=== PATIENT | female | born 1950 | race Hispanic/Latino ===

== ENCOUNTER 2023-11-01 12:33 | Inpatient (IN) | payer OTHER ==
[2023-11-01] MEDS ORDERED: ONDANSETRON 4 MG/2 ML VIAL ONE (13:50)
[2023-11-01] MEDS ORDERED: MORPHINE 4 MG/ML SYR ONE (13:50)
[2023-11-01 14:35] LABS: Absolute Basophils 0.1 K/uL (0-0.5); Absolute Eosinophils 0.1 K/uL (0-0.5); Absolute Lymphocytes (CBC) 1.2 K/uL (0.7-4.9); Absolute Monocytes 0.8 K/uL (0.1-1.3); Absolute Neutrophil 7.1 K/uL (1.8-8.0); Basophils % 0.7 % (0-1.3); Eosinophils % 0.6 % (0-4.4); Hematocrit 29.2 % (36.0-45.0); Hemoglobin 9.7 g/dL (12.0-15.0); Lymphocytes % 13.3 % (15.3-44.8); MCH 29.9 pg (27.0-35.0); MCHC 33.2 g/dL (32.0-36.0); MPV 11.4 fL (7.6-11.3); Monocytes % 8.9 % (3.3-12.3); Neutrophils % 76.5 % (41.7-73.7); Platelets 190 thou/uL (152-406); RBC Red Blood Cell Count 3.25 M/uL (3.86-4.86); Red Cell Distribution Width 16.9 % (12.1-15.2)
[2023-11-01 14:55] LABS: Albumin 3.3 g/dL (3.4-5.0); Albumin/Globulin Ratio 0.8 (1.1-1.8); Anion Gap 11.8 mEq/L (5.0-15.0); Bilirubin Total 0.4 mg/dL (0.2-1.0); Globulin 3.9 g/dL (2.3-3.5); Potassium 3.8 mEq/L (3.5-5.1); Protein, Total 7.2 g/dL (6.4-8.2)
[2023-11-01] MEDS ORDERED: NA CHLORIDE 0.9% 500 ML ONE (15:45)
[2023-11-01] MEDS ORDERED: PROMETHAZINE INJ 25 MG/ML AMP ONE (15:45)
--- NOTE | 2023-11-01 16:05 | RAD REPORT ---
EXAM DESCRIPTION: CT - Abdomen Pelvis Wo Contrast - 11/01/2023 3:47 pm CLINICAL HISTORY: Abdominal pain. ABD PAIN COMPARISON: No comparisons TECHNIQUE: CT imaging of the abdomen and pelvis was performed without contrast. Solid organ, bowel a nd vascular assessment is limited due to lack of IV and oral contrast. All CT scans are performed using dose optimization technique as appropriate and may include automated exposure control or mA/KV adjustment according to patient size. FINDINGS: The lungs are emphysematous but clear.Small hiatal hernia. The liver, spleen, pancreas, adrenal glands and kidneys are within normal limits for a limited non-co ntrast examination.Probable cholelithiasis. No bowel obstruction, free air, free fluid or abscess. Sigmoid diverticulosis coli with mild wall thi ckening. The appendix is normal. The osseous structures are within normal limits.Mild anterolisthesis of L4 on 5. IMPRESSION: Sigmoid thickening is present with diverticula which could indicate mild diverticulitis. Suggest followup colonoscopy for further direct assessment. Suspected cholelithiasis. A limited non-contrast examination was performed as detailed.
--- NOTE | 2023-11-01 16:40 | ER ---
Nurse's Notes [facility] Name: Katja Benson Age: 72 yrs Sex: Female : 1950 Arrival Date: 11/01/2023 Time: 12:33 Bed 13 Private MD: Diagnosis: Diverticulitis of large intestine without perforation or abscess without bleeding;Other cholelithiasis without obstruction;Dehydration;Nausea with vomiting, unspecified;End stage renal disease Presentation: 10/31 13:02 Chief complaint: Patient states: having n/v x 1 month, been to 3 hospitals and cant ko1 find anything wrong. M-W-F dialysis, had to leave today before getting dialysis. Coronavirus screen: At this time, the client does not indicate any symptoms associated with coronavirus-19. Ebola Screen: No symptoms or risks identified at this time. 13:02 Method Of Arrival: Wheelchair ko1 13:04 Initial Sepsis Screen: Does the patient meet any 2 criteria? No. Patient's initial ko1 sepsis screen is negative. Does the patient have a suspected source of infection? No. Patient's initial sepsis screen is negative. Risk Assessment: Do you want to hurt yourself or someone else? Patient reports no desire to harm self or others. Onset of symptoms is unknown. 13:04 Acuity: JARROD 3 ko1 Triage Assessment: 13:05 General: Appears ill, Behavior is cooperative, appropriate for age, anxious. Pain: ko1 Complains of pain in abdomen. Historical: - Allergies: 13:05 Morphine; ko1 - PMHx: 13:05 Diabetes mellitus; Kidney disease; ko1 - Immunization history:: Adult Immunizations unknown. - Infectious Disease History:: Denies. - Social history:: Smoking status: Patient denies any tobacco usage or history of. Screenin:10 [facility] ED Fall Risk Assessment (Adult) History of falling in the last 3 months, rs5 including since admission No falls in past 3 months (0 pts) Confusion or Disorientation No (0 pts) Intoxicated or Sedated No (0 pts) Impaired Gait No (0 pts) Mobility Assist Device Used No (0 pt) Altered Elimination No (0 pt) Score/Fall Risk Level 0 - 2 = Low Risk Oriented to surroundings, Maintained a safe environment. Abuse screen: Denies threats or abuse. Nutritional screening: No deficits noted. Tuberculosis screening: No symptoms or risk factors identified. Assessment: 13:10 General: Appears in no apparent distress. uncomfortable, Behavior is calm, cooperative. rs5 Pain: Complains of pain in abdomen Pain currently is 7 out of 10 on a pain scale. Quality of pain is described as aching, Is continuous. Neuro: Level of Consciousness is awake, alert, obeys commands, Oriented to person, place, time, situation. Cardiovascular: Patient's skin is warm and dry. Rhythm is regular. Respiratory: Airway is patent Respiratory effort is even, unlabored, Respiratory pattern is regular, symmetrical. GI: Abdomen is round non-distended, Abd is soft and non tender X 4 quads. : No signs and/or symptoms were reported regarding the genitourinary system. EENT: No signs and/or symptoms were reported regarding the EENT system. Derm: Skin is intact, Skin is pink, warm \\T\\ dry. Musculoskeletal: Range of motion: intact in all extremities. 13:11 Reassessment: Pt states "I'm not really allergic to morphine but sometimes I just say rs5 that I am because it makes me feel a little funky but I'm not really allergic to it. I'm okay with taking it. "Provider notified. 14:20 Reassessment: Patient and/or family updated on plan of care and expected duration. Pain rs5 level reassessed. Patient is alert, oriented x 3, equal unlabored respirations, skin warm/dry/pink. 15:30 Reassessment: Patient and/or family updated on plan of care and expected duration. Pain rs5 level reassessed. Patient is alert, oriented x 3, equal unlabored respirations, skin warm/dry/pink. Patient states feeling better. Patient states symptoms have improved. 16:09 Reassessment: No changes from previously documented assessment. rs5 17:12 Reassessment: No changes from previously documented assessment. rs5 18:05 Reassessment: Patient and/or family updated on plan of care and expected duration. Pain rs5 level reassessed. Patient is alert, oriented x 3, equal unlabored respirations, skin warm/dry/pink. Vital Signs: 13:02 BP 98 / 54; Pulse 76; Resp 18; Temp 97; Pulse Ox 100% ; ko1 17:09 BP 144 / 73; Pulse 81; Resp 18; Pulse Ox 99% on R/A; rs5 18:01 BP 148 / 76; Pulse 81; Resp 18; Pulse Ox 99% on R/A; rs5 ED Course: 12:35 Patient arrived in ED. im 12:39 Ana Corcoran FNP [facility]. jh7 12:39 Farhan Narayanan MD is Attending Physician. jh7 13:05 Triage completed. ko1 13:05 Arm band placed on right wrist. Patient placed in waiting room, Patient notified of ko1 wait time. 13:10 Patient has correct armband on for positive identification. Placed in gown. Bed in low rs5 position. Call light in reach. Side rails up X2. 13:10 No provider procedures requiring assistance completed. rs5 13:44 Papa Hui, YULY is Primary Nurse. rs5 14:30 Initial lab(s) drawn, by ky, sent to lab. aa5 14:30 Missed attempt(s): 22 gauge in right forearm. Missed attempt(s): 22 gauge in right aa5 wrist. Bleeding controlled, band aid applied, catheter tip intact. 14:49 Missed attempt(s): 24 gauge in right forearm. rs5 14:56 Inserted saline lock: 24 gauge in right forearm, using aseptic technique. ph 15:49 CT Abd/Pelvis - Without Contrast In Process Unspecified. EDMS 16:38 Jp Busby MD is Hospitalizing Provider. jh7 18:01 Patient admitted, IV remains in place. rs5 Administered Medications: 14:30 Drug: Ondansetron IVP 4 mg IVP once; over 2 minutes Route: IVP; Site: left forearm; rs5 14:45 Follow up: Response: No adverse reaction rs5 14:30 Drug: morphine IVP or IV 4 mg IVP once over 4 mins Route: IVP; Infused Over: 4 mins; rs5 Site: left forearm; 14:45 Follow up: Response: No adverse reaction; Pain is decreased rs5 15:39 Drug: NS 0.9% IV 500 ml IV at bolus once Route: IV; Rate: bolus; Site: left antecubital;rs5 16:01 Follow up: Response: No adverse reaction rs5 15:39 Drug: Promethazine IVP 12.5 mg IVP once Route: IVP; Site: left antecubital; rs5 16:02 Follow up: Response: No adverse reaction rs5 17:00 Drug: Ciprofloxacin IVPB 400 mg 200 ml IVPB once over 60 mins Volume: 200 ml; Route: rs5 IVPB; Infused Over: 60 mins; Site: left antecubital; 17:20 Follow up: Response: No adverse reaction rs5 17:10 Drug: metroNIDAZOLE IVPB 500 mg 100 ml IVPB at 200 ml/hr once over 30 mins Volume: 100 rs5 ml; Route: IVPB; Rate: 200 ml/hr; Infused Over: 30 mins; Site: left antecubital; 17:30 Follow up: Response: No adverse reaction rs5 Medication: 15:36 VIS not applicable for this client. rs5 Outcome: 16:39 Decision to Hospitalize by Provider. 7 18:40 Admitted to Med/surg accompanied by tech, rs5 18:40 Condition: stable 18:40 Instructed on the need for admit, Demonstrated understanding of instructions, 18:43 Patient left the ED. jr12 Signatures: Dispatcher [employer] EDNH Carolina Reed, RN RN aa5 Kaila Juárez RN RN Ana Corcoran, INTERNET CONSULTANT INTERNET CONSULTANT 7 Desi Vaughn RN RN ko1 Papa Hui RN RN rs5 Liss Albright Jess jr12 Corrections: (The following items were deleted from the chart) 16:08 13:11 Reassessment: Pt states "I'm not really allergic to morphine but sometimes I just rs5 say that I am because it makes me feel a little funky but I'm not really allergic to it. I'm okay with taking it. ". rs5 18:50 17:09 BP 144 / 73; Pulse 18bpm; Resp 18bpm; Pulse Ox 99% RA; rs5 rs5
--- NOTE | 2023-11-01 16:40 | EDPHYS ---
Physician Documentation [facility] Name: Katja Benson Age: 72 yrs Sex: Female : 1950 Arrival Date: 11/01/2023 Time: 12:33 Bed 13 Private MD: ED Physician Farhan Narayanan HPI: 10/31 13:02 This 72 yrs old Female presents to ER via Wheelchair with complaints of jh7 Weakness, Nausea, Vomiting, Constipation, Urinary Retention. 13:02 72-year-old female presents to the ER for nausea and vomiting and abdominal pain for jh7 the past month, that worsened last week. She reports that she has been unable to keep anything down for the past week and has not had a bowel movement in almost a month. She reports generalized abdominal pain. She gets dialysis M/W/F and left dialysis after 2 hours due to vomiting. Other history includes hypertension, anemia, diabetes, and hypothyroidism.. Historical: - Allergies: 13:05 Morphine; ko1 - PMHx: 13:05 Diabetes mellitus; Kidney disease; ko1 - Immunization history:: Adult Immunizations unknown. - Infectious Disease History:: Denies. - Social history:: Smoking status: Patient denies any tobacco usage or history of. ROS: 13:02 Constitutional: Per HPI jh7 Exam: 13:02 Head/Face: Normocephalic, atraumatic. Eyes: Pupils equal round and reactive to light, jh7 extra-ocular motions intact. Lids and lashes normal. Conjunctiva and sclera are non-icteric and not injected. Cornea within normal limits. Periorbital areas with no swelling, redness, or edema. Neck: Trachea midline, no thyromegaly or masses palpated, and no cervical lymphadenopathy. Supple, full range of motion without nuchal rigidity, or vertebral point tenderness. No Meningismus. Cardiovascular: Regular rate and rhythm with a normal S1 and S2. No gallops, murmurs, or rubs. Normal PMI, no JVD. No pulse deficits. Respiratory: Lungs have equal breath sounds bilaterally, clear to auscultation and percussion. No rales, rhonchi or wheezes noted. No increased work of breathing, no retractions or nasal flaring. Back: No spinal tenderness. No costovertebral tenderness. Full range of motion. MS/ Extremity: Pulses equal, no cyanosis. Neurovascular intact. Full, normal range of motion. Neuro: Awake and alert, GCS 15, oriented to person, place, time, and situation. Motor strength 5/5 in all extremities. Sensory grossly intact. Normal gait. 13:02 Constitutional: The patient appears alert, awake, frail, 13:02 Abdomen/GI: Inspection: abdomen appears normal, Bowel sounds: normal, Palpation: soft, mild abdominal tenderness, in all quadrants, 13:02 Skin: Appearance: Color: pale, Vital Signs: 13:02 BP 98 / 54; Pulse 76; Resp 18; Temp 97; Pulse Ox 100% ; ko1 17:09 BP 144 / 73; Pulse 81; Resp 18; Pulse Ox 99% on R/A; rs5 18:01 BP 148 / 76; Pulse 81; Resp 18; Pulse Ox 99% on R/A; rs5 MDM: 12:39 Patient medically screened. [facility] 16:30 Data reviewed: vital signs, nurses notes, lab test result(s), radiologic studies, CT [facility] scan. Consideration of Admission/Observation Patient was admitted/placed on observation. Management of patient was discussed with the following: Hospitalist: Dr. Castro. I considered the following discharge prescriptions or medication management in the emergency department Medications were administered in the Emergency Department. See MAR. Care significantly affected by the following chronic conditions: Diabetes, Hypertension, Chronic Kidney Disease. Counseling: I had a detailed discussion with the patient and/or guardian regarding the historical points, exam findings, and any diagnostic results supporting the discharge/admit diagnosis, the need for further work-up and treatment in the hospital. Response to treatment: the patient's symptoms have mildly improved after treatment. 10/31 12:47 Order name: CBC with Diff; Complete Time: 15:29 [facility] 10/31 12:47 Order name: CMP; Complete Time: 15:29 [facility] 10/31 12:47 Order name: Lipase; Complete Time: 15:29 [facility] 10/31 12:47 Order name: Urinalysis w/ reflexes 7 10/31 16:57 Order name: Thyroid Stimulating Hormone EDMS 10/31 16:57 Order name: Urinalysis w/ reflexes EDMS 10/31 16:57 Order name: CBC with Automated Diff EDMS 10/31 16:57 Order name: CBC with Automated Diff EDMS 10/31 16:57 Order name: Comprehensive Metabolic Panel EDHI 10/31 16:57 Order name: Comprehensive Metabolic Panel EDHI 10/31 16:57 Order name: Lipid Profile EDMS 10/31 16:57 Order name: Lipid Profile EDHI 10/31 16:57 Order name: Magnesium EDHI 10/31 16:57 Order name: Magnesium EDMS 10/31 16:57 Order name: Phosphorus EDMS 10/31 16:57 Order name: Phosphorus EDMS 10/31 15:32 Order name: CT Abd/Pelvis - Without Contrast; Complete Time: 16:12 7 10/31 12:47 Order name: IV Saline Lock; Complete Time: 15:33 7 10/31 12:47 Order name: Labs collected and sent; Complete Time: 14:34 [facility] 10/31 16:44 Order name: EKG - Nurse/Tech; Complete Time: 18:24 jh7 EC:11 Rate is 68 beats/min. Rhythm is regular. QRS [place] is Normal. QRS interval is normal at 7 120 msec. QT interval is normal at 370 msec. No Q waves. T waves are Normal. ST Segment is depressed in leads II, III, V4, V5, V6. Administered Medications: 14:30 Drug: Ondansetron IVP 4 mg IVP once; over 2 minutes Route: IVP; Site: left forearm; rs5 14:45 Follow up: Response: No adverse reaction rs5 14:30 Drug: morphine IVP or IV 4 mg IVP once over 4 mins Route: IVP; Infused Over: 4 mins; rs5 Site: left forearm; 14:45 Follow up: Response: No adverse reaction; Pain is decreased rs5 15:39 Drug: NS 0.9% IV 500 ml IV at bolus once Route: IV; Rate: bolus; Site: left antecubital;rs5 16:01 Follow up: Response: No adverse reaction rs5 15:39 Drug: Promethazine IVP 12.5 mg IVP once Route: IVP; Site: left antecubital; rs5 16:02 Follow up: Response: No adverse reaction rs5 17:00 Drug: Ciprofloxacin IVPB 400 mg 200 ml IVPB once over 60 mins Volume: 200 ml; Route: rs5 IVPB; Infused Over: 60 mins; Site: left antecubital; 17:20 Follow up: Response: No adverse reaction rs5 17:10 Drug: metroNIDAZOLE IVPB 500 mg 100 ml IVPB at 200 ml/hr once over 30 mins Volume: 100 rs5 ml; Route: IVPB; Rate: 200 ml/hr; Infused Over: 30 mins; Site: left antecubital; 17:30 Follow up: Response: No adverse reaction rs5 Disposition: 19:57 Co-signature as Attending Physician, Farhan Narayanan MD I reviewed the patient's care rn provided by the Advanced Practice Provider and agree with the diagnosis and treatment plan. Disposition Summary: 11/01/23 16:39 Hospitalization Ordered Notes: Hospitalization Status: Inpatient Admission [facility] Provider: Jp Busby [facility] Condition: Stable [facility] Problem: an ongoing problem [facility] Symptoms: are unchanged [facility] Bed/Room Type: Standard [facility] Location: Telemetry/MedSurg (Inpatient)(11/01/23 17:37) bd Room Assignment: [facility](11/01/23 17:37) bd Diagnosis - Diverticulitis of large intestine without perforation or abscess without bleeding jh7 - Other cholelithiasis without obstruction 7 - Dehydration jh7 - Nausea with vomiting, unspecified [facility] - End stage renal disease [facility] Forms: - Medication Reconciliation Form [facility] - SBAR form [facility] - Leadership Thank You Letter [facility] Signatures: Dispatcher [employer] EDMS Lala Young Roman, MD MD rn Hadash, Jennifer, SHELLEY LOPEZP 7 Nadira Florence RN RN kb3 Desi Vaughn RN RN ko1 Papa Hui, RN RN rs5 Corrections: (The following items were deleted from the chart) 12:48 12:47 CBC+H.LAB.BRZ ordered. EDMS EDMS 12:48 12:47 COMPREHENSIVE METABOLIC PANEL+C.LAB.BRZ ordered. EDMS EDMS 12:48 12:47 LIPASE+C.LAB.BRZ ordered. EDMS EDMS 12:48 12:47 Urinalysis+U.LAB.BRZ ordered. EDMS EDMS 15:33 15:33 Abdomen Pelvis Wo Con+CT.RAD.BRZ ordered. EDHI EDMS 17:33 16:39 Telemetry/MedSurg (Inpatient) [facility] kb3 17:33 16:39 [facility] 17:37 17:33 [facility] kb3 bd 17:37 17:33 ERHOLD- kb3 bd 18:07 18:07 Troponin High Sensitivity+C.LAB.STEFANIE ordered. EDMS EDMS
--- NOTE | 2023-11-01 16:55 | P.HP ---
Certification for Inpatient Patient admitted to: Inpatient With expected LOS: >2 Midnights Patient will require the following post-hospital care: None Practitioner: I am a practitioner with admitting privileges, knowledge of patient current condition, hospital course, and medical plan of care. Services: Services provided to patient in accordance with Admission requirements found in Title 42 Section 412.3 of the Code of Federal Regulations <Gisele Bruno - Last Filed: 11/01/23 19:51> Patient History Date of Service: 11/01/23 Reason for admission: N/V, ESRD, colitis History of Present Illness: Ms. Benson is a 72-year-old with a past medical history of coronary artery disease, hypertension with CKD, end-stage renal disease, hyperlipidemia, hypothyroidism who sees Dr. Kuo and Dr. Pavon in [place]. 3 months ago she had a cardiac catheterization with PCI. 1 month ago she started experiencing severe nausea and vomiting. She states she vomited between 3 and 5 times daily. She has been going to dialysis Wednesday, Wednesday, Wednesday as scheduled; however, she has not been able to tolerate her normal 3-hour treatments. Today she went to dialysis for 2 hours but became hypotensive, nauseous, and was brought to the emergency department. She states over the last month she has lost 20 pounds. She denies chest pain, shortness of breath, diarrhea. She denies significant abdominal pain but says she is uncomfortable. CT evaluation with "sigmoid thickening is present with diverticula which could indicate mild diverticulitis. Suggest follow-up colonoscopy for further direct assessment. Suspected cholelithiasis. A limited noncontrast examination was performed as detailed." Ms. Benson is hemodynamically stable and we will admit her for further evaluation and treatment. Home medications list reviewed: Yes (Filled at [facility]) - Past Medical/Surgical History Has patient received pneumonia vaccine in the past: No -: ESRD -: DM -: HTN -: Coronary artery disease -: dialysis catheter (right chest wall) -: Cardiac stents Psychosocial/ Personal History: Lives at home with her disabled - Family History Family History: Reviewed- Non-Contributory - Social History Smoking Status: Unknown if ever smoked Smoking therapy provided: No Alcohol use: No CD- Drugs: No Caffeine use: No Place of Residence: Home <Keturah Brunowilliam Flood - Last Filed: 11/01/23 19:51> Date of Service: 11/01/23 <Jp Busby - Last Filed: 11/01/23 21:56> Allergies codeine Adverse Reaction (Verified 11/01/23 17:43) Review of Systems 10-point ROS is otherwise unremarkable General: Other (dry mouth), As per HPI Eyes: Vision Change Respiratory: Unremarkable Gastrointestinal: Nausea, Vomiting, Other (20# wt loss) Neurological: Weakness <Gisele Brunolen - Last Filed: 11/01/23 19:51> Physical Examination - Physical Exam General: Alert, Oriented x3, Cachectic, Mild distress HEENT: Atraumatic, Normocephalic, Other (hoarse voice) Neck: No Thyromegaly Respiratory: Normal air movement Cardiovascular: Normal pulses, Systolic murmur, Diastolic murmur Capillary refill: <2 Seconds Gastrointestinal: Soft and benign Musculoskeletal: No clubbing, No swelling Integumentary: No rashes Neurological: Abnormal speech (hoarse), Abnormal strength (generally weak) Lymphatics: No axilla or inguinal lymphadenopathy External genitalia: Deferred Rectal: Deferred - Studies Laboratory Data (last 24 hrs) 11/01/23 11/01/23 14:25 14:25 WBC 9.30 Hgb 9.7 L Hct 29.2 L Plt Count 190 Sodium 132 L Potassium 3.8 BUN 22 H Creatinine 5.42 H Glucose 128 H Total Bilirubin 0.4 AST 15 ALT 17 Alkaline Phosphatase 107 Lipase 42 <Gisele Brunolen - Last Filed: 11/01/23 19:51> - Studies Laboratory Data (last 24 hrs) 11/01/23 11/01/23 14:25 14:25 WBC 9.30 Hgb 9.7 L Hct 29.2 L Plt Count 190 Sodium 132 L Potassium 3.8 BUN 22 H Creatinine 5.42 H Glucose 128 H Total Bilirubin 0.4 AST 15 ALT 17 Alkaline Phosphatase 107 Lipase 42 <Jp Busby - Last Filed: 11/01/23 21:56> Assessment and Plan - Plan ESRD with dehydration Gentle hydration continue lasix as directed Trend labs Replete electrolytes Consult Dr. Jackson Intractable N/V with weight loss Phenergan [place] N.p.o. except ice chips HTN/Coronary artery disease Home medications as directed Digoxin, isosorbide, amiodarone, metoprolol Florinef 0.1 mg daily HLD Home medication Hypothyroidism Levothyroxine 0.05 mg Evaluate TSH Diverticulitis Cipro and Flagyl with renal dosing Serial abdominal exam N.p.o. except ice chips DVT/GI prophylaxis Patient takes aspirin/Plavix Protonix - Advance Directives Does patient have a Living Will: No Does patient have a Durable POA for Healthcare: No <Gisele Bruno - Last Filed: 11/01/23 19:51> - Plan Pt seenand examined. I agree with the note by the SURGICAL GARMENT ASSEMBLER. Pt is a 72yo female with past medical history of coronary artery disease, hypertension with CKD, end- stage renal disease, hyperlipidemia, and hypothyroidism who presents with intractable nausea and vomiting. The symptoms progressively worsened to the extent that she could not tolerate 3 hours of dialysis. Today's dialysis session was cut short due to hypotension and nausea. Pt also reported [address] abd /pelvis shows sigmoid thickening is present with diverticula which could indicate mild diverticulitis. At bedside, pt is in NAD. A/P: Intractable nausea and vomiting: Will continue prn antiemetic, and IVF. Diverticulitis: per CT abd. Will continue cipro and flagyl. ESRD: Will consult Nephrology. Will continue HD per schedule. Hx of CAD: Continue home meds. Continue other home meds <Jp Busby - Last Filed: 11/01/23 21:56>
[2023-11-01] MEDS: HEPARIN 5000 UNIT/ML 1 ML VIAL SQ SCH (17:00)
[2023-11-01] MEDS ORDERED: METRONIDAZOLE 500mg IVPB 500 MG/100 ML BAG IV ONE (17:11)
[2023-11-01] MEDS ORDERED: CIPROFLOXACIN 400mg IV 400 MG/200 ML BAG IV ONE (17:11)
[2023-11-01] MEDS ORDERED: SODIUM CHLORIDE 0.9% 10ML INJ IV PRN (18:33)
[2023-11-01] MEDS: NA CHLORIDE 0.9% 1,000 ML IV SCH (20:53)
[2023-11-01 20:57] VITALS: BMI 22.8
[2023-11-01] MEDS: INSULIN REGULAR (HUMAN) 100 UNIT/ML SQ SCH (21:00)
[2023-11-01] MEDS ORDERED: Ciprofloxacin 200mg IV 200 MG/100 ML IV.SOLN. IV SCH (21:00)
[2023-11-01] MEDS: AMIODARONE HCL 200 MG TAB PO SCH (22:05)
[2023-11-02] MEDS: METRONIDAZOLE 500mg IVPB 500 MG/100 ML BAG IV SCH (01:15)
[2023-11-02] MEDS: METOPROLOL XL 50 MG TAB PO SCH (06:00)
[2023-11-02] MEDS: LEVOTHYROXINE SOD 0.05 MG TABLET PO SCH (06:13)
[2023-11-02] MEDS: HEPARIN 5000 UNIT/ML 1 ML VIAL SQ SCH (06:13)
[2023-11-02 06:40] LABS: Absolute Basophils 0.1 K/uL (0-0.5); Absolute Eosinophils 0.2 K/uL (0-0.5); Absolute Lymphocytes (CBC) 1.8 K/uL (0.7-4.9); Absolute Monocytes 0.8 K/uL (0.1-1.3); Absolute Neutrophil 4.2 K/uL (1.8-8.0); Basophils % 1.5 % (0-1.3); Eosinophils % 2.4 % (0-4.4); Hematocrit 25.1 % (36.0-45.0); Hemoglobin 8.3 g/dL (12.0-15.0); Lymphocytes % 25.3 % (15.3-44.8); MCH 29.8 pg (27.0-35.0); MCHC 33.1 g/dL (32.0-36.0); MCV 90.1 fL (80-100); MPV 11.1 fL (7.6-11.3); Monocytes % 11.2 % (3.3-12.3); Neutrophils % 59.6 % (41.7-73.7); Nucleated Red Blood Cells % 0.3 % (0-0); Platelets 160 thou/uL (152-406); RBC Red Blood Cell Count 2.78 M/uL (3.86-4.86); Red Cell Distribution Width 16.9 % (12.1-15.2)
[2023-11-02 07:47] LABS: ALT/SGPT 13 U/L (13-56); AST/SGOT 12 U/L (15-37); Albumin 2.9 g/dL (3.4-5.0); Albumin/Globulin Ratio 0.9 (1.1-1.8); Alkaline Phosphatase 86 U/L (45-117); Anion Gap 9.6 mEq/L (5.0-15.0); BUN Blood Urea Nitrogen 27 mg/dL (7-18); Bicarbonate 24 mEq/L (21-32); Bilirubin Total 0.4 mg/dL (0.2-1.0); Globulin 3.1 g/dL (2.3-3.5); Glomerular Filtration Rate 7 ml/min (=/>90); Glucose Level 71 mg/dL (74-106); HDL Cholesterol 44 mg/dL (40-60); LDL Cholesterol, Calculated 132 mg/dL (<130); LDL Cholesterol,Calc NonReport 132; Phosphorus 4.3 mg/dL (2.5-4.9); Potassium 3.6 mEq/L (3.5-5.1); Sodium Level 135 mEq/L (136-145)
[2023-11-02 07:50] LABS: Digoxin Level > 5.00 ng/mL (0.80-2.00)
[2023-11-02] MEDS ORDERED: DIGOXIN 0.125 MG TABLET PO SCH (09:00)
[2023-11-02] MEDS: ISOSORBIDE MONO SR 60 MG TAB PO SCH (09:00)
[2023-11-02] MEDS: Ciprofloxacin 200mg IV 200 MG/100 ML IV.SOLN. IV SCH (09:13)
[2023-11-02] MEDS: FLUDROCORTISONE 0.1 MG TAB PO SCH (09:13)
[2023-11-02] MEDS: SERTRALINE HCL 50 MG TAB PO SCH (09:14)
[2023-11-02] MEDS: CLOPIDOGREL 75 MG TABLET PO SCH (09:14)
[2023-11-02] MEDS: FUROSEMIDE 40 MG TABLET PO SCH (09:14)
--- NOTE | 2023-11-02 10:55 | P.PN ---
Subjective Date of Service: 11/02/23 Chief Complaint: N/V, ESRD, colitis Subjective: No C/O voiced, Improving (Pt states she is feeling a little better. Lips not as dry) <Gisele Bruno - Last Filed: 11/02/23 10:49> Date of Service: 11/02/23 <Jp Busby C - Last Filed: 11/02/23 13:28> Review of Systems 10-point ROS is otherwise unremarkable General: As per HPI Eyes: Vision Change, As per HPI Cardiovascular: As per HPI Gastrointestinal: Nausea, Vomiting, Abdominal Pain, As per HPI Neurological: As per HPI <Gisele Bruno - Last Filed: 11/02/23 10:49> Physical Examination - Vital Signs Temperature: 97.2 F Blood Pressure: 129/59 Pulse: 63 Respirations: 15 Pulse Ox (%): 95 - Physical Exam General: Alert, In no apparent distress, Oriented x3 HEENT: Atraumatic, Normocephalic Neck: JVD not distended Respiratory: Normal air movement Cardiovascular: Normal pulses, Systolic murmur, Diastolic murmur Capillary refill: <2 Seconds Gastrointestinal: Normal bowel sounds, Tenderness (mild generalized) Musculoskeletal: No clubbing, No swelling Integumentary: No rashes Neurological: Normal speech, Normal tone Lymphatics: No axilla or inguinal lymphadenopathy External genitalia: Deferred Rectal: Deferred - Studies Laboratory Data (last 24 hrs) 11/01/23 11/01/23 14:25 14:25 WBC 9.30 Hgb 9.7 L Hct 29.2 L Plt Count 190 Sodium 132 L Potassium 3.8 BUN 22 H Creatinine 5.42 H Glucose 128 H Total Bilirubin 0.4 AST 15 ALT 17 Alkaline Phosphatase 107 Lipase 42 <Gisele Bruno - Last Filed: 11/02/23 10:49> - Studies Laboratory Data (last 24 hrs) 11/01/23 11/01/23 14:25 14:25 WBC 9.30 Hgb 9.7 L Hct 29.2 L Plt Count 190 Sodium 132 L Potassium 3.8 BUN 22 H Creatinine 5.42 H Glucose 128 H Total Bilirubin 0.4 AST 15 ALT 17 Alkaline Phosphatase 107 Lipase 42 <Jp Busby C - Last Filed: 11/02/23 13:28> Assessment And Plan - Plan ESRD with dehydration Gentle hydration continue lasix as directed Trend labs Replete electrolytes Consult Dr. Renetta Villalta N/V with weight loss Phenergan [place] N.p.o. except ice chips HTN/Coronary artery disease with chronic digoxin toxicity Home medications as directed telemetry isosorbide, amiodarone, metoprolol Digoxin level toxic at 5, discontinue digoxin Florinef 0.1 mg daily HLD Home medication Hypothyroidism Levothyroxine 0.05 mg Evaluate TSH - 1.47 Diverticulitis Cipro and Flagyl with renal dosing Serial abdominal exam N.p.o. except ice chips DVT/GI prophylaxis Patient takes aspirin/Plavix Protonix <Gisele Bruno - Last Filed: 11/02/23 10:49> - Plan Pt seen and examined. I agree with the note by the CIGARETTE MAKING MACHINE HOPPER FEEDER. Continue prn antiemetic. Dig level is > 5. Will hold digoxin. Will start atorvastatin.Continue cipro and flagyl for diverticulitis. <Jp Busby - Last Filed: 11/02/23 13:28>
[2023-11-02] MEDS ORDERED: HEPARIN 5000 UNIT/ML 1 ML VIAL SQ SCH (12:00)
--- NOTE | 2023-11-02 20:57 | P.PN ---
Date of Service: 11/02/23 Patient heart rate dropped into the 30s, will DC amiodarone and metoprolol, may need cardiology eval
[2023-11-02] MEDS: PANTOPRAZOLE 40 MG INJ IVP SCH (21:35)
[2023-11-02] MEDS: ATORVASTATIN 40 MG TAB PO SCH (21:35)
[2023-11-03 01:29] LABS: Specific Gravity 1.007 (1.005-1.030); Urine Bacteria <20 /HPF (<20); Urine Bilirubin NEGATIVE (Negative); Urine Blood Negative (Negative); Urine Clarity Turbid (Clear); Urine Color Light-Yellow (Yellow); Urine Culture Reflex Order NOT NEEDED; Urine Glucose NEGATIVE (Negative); Urine Ketones NEGATIVE (Negative); Urine Microscopic Reflex YN ORDER UMIC; Urine Nitrite NEGATIVE (Negative); Urine Protein TRACE (Negative); Urine RBC <5 /HPF (None Seen); Urine Urobilinogen Normal (Normal); Urine WBC <5 /HPF (<5); Urine pH 5.5 (5.0-7.0)
[2023-11-03] MEDS: PROMETHAZINE INJ 25 MG/ML AMP IV ONE (04:18)
[2023-11-03 07:29] LABS: Absolute Basophils 0.1 K/uL (0-0.5); Absolute Eosinophils 0.1 K/uL (0-0.5); Absolute Lymphocytes (CBC) 1.2 K/uL (0.7-4.9); Absolute Monocytes 0.7 K/uL (0.1-1.3); Absolute Neutrophil 4.9 K/uL (1.8-8.0); Basophils % 1.5 % (0-1.3); Eosinophils % 1.7 % (0-4.4); Hematocrit 26.7 % (36.0-45.0); Hemoglobin 8.7 g/dL (12.0-15.0); Lymphocytes % 16.5 % (15.3-44.8); MCH 29.7 pg (27.0-35.0); MCHC 32.8 g/dL (32.0-36.0); MCV 90.7 fL (80-100); MPV 11.2 fL (7.6-11.3); Monocytes % 10.5 % (3.3-12.3); Neutrophils % 69.8 % (41.7-73.7); Platelets 161 thou/uL (152-406); RBC Red Blood Cell Count 2.94 M/uL (3.86-4.86); Red Cell Distribution Width 17.5 % (12.1-15.2)
[2023-11-03 07:55] LABS: Anion Gap 11.6 mEq/L (5.0-15.0); Bilirubin Total 0.4 mg/dL (0.2-1.0); Globulin 2.9 g/dL (2.3-3.5); Potassium 3.6 mEq/L (3.5-5.1); Protein, Total 5.9 g/dL (6.4-8.2)
[2023-11-03] MEDS: POTASSIUM CL SA 10 MEQ TAB PO ONE (09:24)
--- NOTE | 2023-11-03 12:53 | P.PN ---
Subjective Date of Service: 11/03/23 Chief Complaint: N/V, ESRD, colitis Subjective: Improving (However, pt did have afib with SVR and overnight HR dropped to 30s, held metoprolol and amiodarone, I held imdur this am as well. 12 lead EKG performed. Qtc normal, widened QRS. Dr. Jackson notified. Plan for dialysis today) <DamionGisele Flood - Last Filed: 11/03/23 12:47> Date of Service: 11/03/23 <Jp Busby - Last Filed: 11/03/23 13:18> Review of Systems 10-point ROS is otherwise unremarkable Cardiovascular: As per HPI Gastrointestinal: As per HPI Neurological: As per HPI <DamionGisele Flood - Last Filed: 11/03/23 12:47> Physical Examination - Vital Signs Temperature: 97.3 F Blood Pressure: 150/66 Pulse: 63 Respirations: 17 Pulse Ox (%): 96 - Physical Exam General: Alert, In no apparent distress, Oriented x3, Other (generally weak) HEENT: Atraumatic, Normocephalic Neck: Supple Respiratory: Normal air movement Cardiovascular: No edema, Irregular heart rate/rhythm, Systolic murmur, Diastolic murmur Capillary refill: <2 Seconds Gastrointestinal: Soft and benign Musculoskeletal: No clubbing Integumentary: No rashes, Other (davis/pale coloration but not jaundiced) Neurological: Normal speech, Abnormal strength Lymphatics: No axilla or inguinal lymphadenopathy External genitalia: Deferred Rectal: Deferred <BrunoKeturahwilliam Flood - Last Filed: 11/03/23 12:47> Assessment And Plan - Plan ESRD with dehydration Gentle hydration, fluids stopped this am continue lasix as directed Trend labs Replete electrolytes Dr. Jackson following Intractable N/V with weight loss Phenergan [place] N.p.o. except ice chips Pt found to be Digoxin toxic, awaiting dialysis HTN/Coronary artery disease with chronic digoxin toxicity Home medications as directed telemetry Hold isosorbide, amiodarone, metoprolol, digoxin Digoxin level toxic at 5, discontinue digoxin Florinef 0.1 mg daily HLD Home medication Hypothyroidism Levothyroxine 50 mcg Evaluated TSH - 1.47 Diverticulitis Cipro and Flagyl with renal dosing Serial abdominal exam N.p.o. except ice chips DVT/GI prophylaxis Patient takes aspirin/Plavix Protonix <Gisele Bruno - Last Filed: 11/03/23 12:47> - Plan Pt seen and examined. I agree with the note by the SANE RN. Continue prn antiemetic. She has digoxin toxicity. Pt is waiting for dialysis. Hold digoxin and amiodarone. Continue abx for diverticulitis. <Jp Busby - Last Filed: 11/03/23 13:18>
[2023-11-03 14:16] LABS: Hepatitis B surface AG Interp. Nonreactive (Nonreactive)
[2023-11-03 14:20] LABS: Hepatitis B Surface Ab - Quant < 3.10 mIU/mL (<8.0)
[2023-11-03 14:21] LABS: HBsAG Nonreactive Report Report
--- NOTE | 2023-11-03 15:53 | CON ---
Date of Consultation: 11/03/2023 Reason For Consultation: Digoxin toxicity, end-stage renal disease. History Of Present Illness: This is a pleasant 72-year-old female, well known to me from the dialysi s with significant past medical history of: 1.End-stage renal disease, on hemodialysis, Wednesday, Wednesday, Wednesday at [facility] 2.Diabetes complicated with the neuropathy. 3.Hypertension. 4.CAD, status post CABG and status post PTCA. Patient was in her regular state of health. The patient was started on digoxin 2 weeks ago. The pat ient during the dialysis became nausea and hypotensive. For that reason, patient was referred to the hospital. Primary workup showed dig level above 5. For that reason, patient was admitted. Patient denied any fever, any chills. Patient still has nausea. Past Medical History: Include: 1.End-stage renal disease, on dialysis Wednesday, Wednesday, Wednesday. 2.Diabetes. 3.CAD, status post PCI. 4.Hypertension. Family History: Positive for hypertension. Social History: Denied smoking. Denied drinking. Denied drugs abuse. Allergies: TO CODEINE. Past Surgical History: Include TDC placement, AV fistula. Review of Systems: Head and Neck: No red eye. No ear pain. GI: Has nausea, vomiting. : No polyuria. No dysuria. No hematuria. ACIDIZER WATER WELL: No vaginal discharge. Respiratory: No shortness of breath. Cardiovascular: No chest pain. Endocrine: No polydipsia. Skin: No rash. Neuro: Has weakness, fatigue. Musculoskeletal: Generalized weakness. Physical Examination: Vital Signs: Blood pressure 150/66, pulse of 63, afebrile. Chest: Clear to auscultation. Heart: S1, S2. Systolic murmur. Abdomen: Soft, nontender. Extremity: Trace edema. Neurologic: Alert. No focality. Laboratory Data: Hemoglobin 8.7. Sodium 135, potassium 3.6, bicarb 23, BUN 30, creatinine 6.4, calc ium 8.6, albumin 3. Current Medications: The patient on, it includes metronidazole, ciprofloxacin, heparin, Plavix, Zolo ft, isosorbide, levothyroxine, Florinef. Assessment And Plan: 1.End-stage renal disease with digoxin toxicity. We will arrange for dialysis today. We will dialy ze on low blood flow to give the benefit of digoxin clearance and we will follow up. I agree with ho lding digoxin. 2.Hypokalemia. The patient is going to be dialyzed on high potassium bath. 3.Hypertension, controlled, optimal. 4.Digoxin toxicity. Follow up with the primary. We will dialyze the patient today. 5.Diabetes, as by primary. 6.Congestive heart failure, currently normal volume. 7.Hyponatremia, dilutional, will be corrected with the dialysis. 8.Gastroenteritis. Continue symptomatic treatment, mostly secondary to digoxin toxicity. Thank you, Dr. Busby, for allowing us to participate in the care of your patient. HANNAH Voice ID: [id number] Report ID: [id number]
[2023-11-03] MEDS: ENSURE CLEAR 200 ML CAN PO SCH (20:28)
[2023-11-04 05:04] LABS: Absolute Basophils 0.1 K/uL (0-0.5); Absolute Eosinophils 0.2 K/uL (0-0.5); Absolute Lymphocytes (CBC) 3.2 K/uL (0.7-4.9); Absolute Monocytes 0.9 K/uL (0.1-1.3); Absolute Neutrophil 5.4 K/uL (1.8-8.0); Basophils % 1.3 % (0-1.3); Eosinophils % 1.9 % (0-4.4); Hematocrit 31.2 % (36.0-45.0); Hemoglobin 10.4 g/dL (12.0-15.0); Lymphocytes % 32.7 % (15.3-44.8); MCH 30.3 pg (27.0-35.0); MCHC 33.3 g/dL (32.0-36.0); MPV 11.6 fL (7.6-11.3); Monocytes % 9.2 % (3.3-12.3); Neutrophils % 54.9 % (41.7-73.7); Platelets 193 thou/uL (152-406); RBC Red Blood Cell Count 3.43 M/uL (3.86-4.86); Red Cell Distribution Width 17.8 % (12.1-15.2)
[2023-11-04 05:37] LABS: Albumin 3.6 g/dL (3.4-5.0); Anion Gap 12.7 mEq/L (5.0-15.0); Bilirubin Total 0.4 mg/dL (0.2-1.0); Globulin 3.6 g/dL (2.3-3.5); Potassium 3.7 mEq/L (3.5-5.1); Protein, Total 7.2 g/dL (6.4-8.2)
[2023-11-04 05:38] LABS: Digoxin Level 3.9 ng/mL (0.80-2.00)
[2023-11-04] MEDS: POTASSIUM CL SA 10 MEQ TAB PO ONE (07:53)
[2023-11-04] MEDS: HEPARIN 5000 UNIT/ML 1 ML VIAL SQ SCH (07:53)
[2023-11-04] MEDS: PROMETHAZINE 12.5 MG/SUPP PR PRN (14:01)
--- NOTE | 2023-11-04 16:46 | EKG ---
Test Date: 2023-11-03 Test Time: 09:24:51 Hearing Therapy Teacher: BRENT MEASUREMENT RESULTS: Intervals: Rate: 62 NE: QRSD: 138 QT: 372 QTc: 377 [place]: P: NE: QRS: 33 T: -88 INTERPRETIVE STATEMENTS: Wide QRS rhythm Nonspecific intraventricular block T wave abnormality, consider inferior ischemia Abnormal ECG Compared to ECG 11/01/2023 18:01:48 Uncertain supraventricular rhythm now present T-wave abnormality now present Possible ischemia now present ST (T wave) deviation no longer present Electronically Signed On 11-04-23 16:42:11 CDT by Aubrey Zuniga
--- NOTE | 2023-11-04 16:55 | EKG ---
Test Date: 2023-11-01 Test Time: 18:01:48 Metal Cabinet Finisher: KIMANI MEASUREMENT RESULTS: Intervals: Rate: 68 TX: QRSD: 120 QT: 370 QTc: 393 [place]: P: TX: QRS: 98 T: -65 INTERPRETIVE STATEMENTS: Sinus rhythm Marked ST abnormality, possible inferior subendocardial injury Marked ST abnormality, possible anterolateral subendocardial injury Abnormal ECG No previous ECG available for comparison Electronically Signed On 11-04-23 16:45:27 CDT by Aubrey Zuniga
--- NOTE | 2023-11-04 19:49 | PN ---
Date of Progress Note: 11/04/2023 Subjective: The patient was admitted to the hospital with digoxin toxicity. The patient was dialyze d yesterday, tolerated the dialysis very well. Physical Examination: Vital Signs: Blood pressure 119/42, pulse of 60, afebrile. Chest: Clear to auscultation. Heart: S1, S2 regular. Abdomen: Soft, nontender. Extremities: No edema. Neuro: No tremor today. Laboratory Data: Hemoglobin 10.4. Sodium 136, potassium is 3.7, bicarb 26, BUN 12, creatinine 4.1, calcium 8.9. Current Medications: Current medications the patient on are include: 1.Metronidazole. 2.Ciprofloxacin. 3.Promethazine. 4.Plavix. 5.Isosorbide. 6.Atorvastatin. 7.Lasix 40. 8.Pantoprazole. 9.Florinef. 10.Levothyroxine. Assessment And Plan: 1.End-stage renal disease, normal volume with dig toxicity. We will keep the patient on her regular dialysis schedule. We will arrange for dialysis tomorrow and we will follow up. 2.Hypertension, controlled. Optimal continue current treatment. 3.Over volume. Patient currently normal volume. Back to her schedule. 4.Hypokalemia, recover, resolve. 5.Dig toxicity as by primary. No need for extra dialysis as dig not dialyzed. LEIGH/DANGELO Voice ID: [id number] Report ID: [id number]
--- NOTE | 2023-11-04 20:13 | P.PN ---
Subjective Date of Service: 11/04/23 Chief Complaint: N/V, ESRD, colitis Subjective: Improving (Dig still toxic at 3.9, Cardiology consulted) <Gisele Brunolen - Last Filed: 11/04/23 20:09> Date of Service: 11/04/23 <Jp Busby Ralph - Last Filed: 11/04/23 22:43> Review of Systems 10-point ROS is otherwise unremarkable General: Weakness Gastrointestinal: Nausea, As per HPI <Gisele Bruno Remigio - Last Filed: 11/04/23 20:09> Physical Examination - Vital Signs Temperature: 96.8 F Blood Pressure: 125/70 Pulse: 91 Respirations: 16 Pulse Ox (%): 97 - Physical Exam General: Alert, In no apparent distress, Oriented x3 HEENT: Atraumatic, Normocephalic Neck: Supple Respiratory: Normal air movement Cardiovascular: Regular rate/rhythm, Systolic murmur Capillary refill: <2 Seconds Gastrointestinal: Hypoactive Musculoskeletal: No clubbing, No tenderness Integumentary: No rashes Neurological: Normal speech, Normal tone Lymphatics: No axilla or inguinal lymphadenopathy External genitalia: Deferred Rectal: Deferred <Gisele Bruno Remigio - Last Filed: 11/04/23 20:09> Assessment And Plan - Plan ESRD with dehydration Euvolemic 11/03 continue lasix as directed Trend labs Replete electrolytes Dr. Jackson following Intractable N/V with weight loss Phenergan [place] N.p.o. except ice chips Pt found to be Digoxin toxic at 5.0, s/p dialysis yesterday 11/02, level 3.9. HTN/Coronary artery disease with chronic digoxin toxicity Home medications as directed telemetry Hold isosorbide, amiodarone, metoprolol Digoxin level toxic at 5, discontinue digoxin Florinef 0.1 mg daily Consult Cardiology HLD Home medication Hypothyroidism Levothyroxine 50 mcg Evaluated TSH - 1.47 Diverticulitis Cipro and Flagyl with renal dosing Serial abdominal exam N.p.o. except ice chips DVT/GI prophylaxis Patient takes aspirin/Plavix Protonix <Keturah Brunoy Remigio - Last Filed: 11/04/23 20:09> - Plan Pt seen and examined. I agree withe the note by the BRASS BOBBIN WINDER. Pt still has intractable nausea and vomiting. Will consult GI. Will give pt cld <Jp Busby - Last Filed: 11/04/23 22:43>
[2023-11-05 04:10] LABS: Absolute Basophils 0.1 K/uL (0-0.5); Absolute Eosinophils 0.1 K/uL (0-0.5); Absolute Lymphocytes (CBC) 1.8 K/uL (0.7-4.9); Absolute Monocytes 0.8 K/uL (0.1-1.3); Absolute Neutrophil 5.5 K/uL (1.8-8.0); Basophils % 1.1 % (0-1.3); Eosinophils % 1.5 % (0-4.4); Hematocrit 25.6 % (36.0-45.0); Hemoglobin 8.5 g/dL (12.0-15.0); Lymphocytes % 21.7 % (15.3-44.8); MCH 29.8 pg (27.0-35.0); MCHC 33.3 g/dL (32.0-36.0); MCV 89.6 fL (80-100); MPV 11.2 fL (7.6-11.3); Monocytes % 9.5 % (3.3-12.3); Neutrophils % 66.2 % (41.7-73.7); Nucleated Red Blood Cells % 0.1 % (0-0); Platelets 164 thou/uL (152-406); RBC Red Blood Cell Count 2.85 M/uL (3.86-4.86); Red Cell Distribution Width 18.1 % (12.1-15.2)
[2023-11-05 04:54] LABS: Anion Gap 10.7 mEq/L (5.0-15.0); Bilirubin Total 0.4 mg/dL (0.2-1.0); Globulin 3.1 g/dL (2.3-3.5); Potassium 3.7 mEq/L (3.5-5.1); Protein, Total 6.1 g/dL (6.4-8.2)
[2023-11-05] MEDS: POTASSIUM CL SA 10 MEQ TAB PO ONE (08:53)
--- NOTE | 2023-11-05 14:29 | P.PN ---
Subjective Date of Service: 11/05/23 Chief Complaint: N/V, ESRD, colitis Subjective: No C/O voiced (To dialysis today, noted Digoxin not cleared by dialysis, Stopped on day of admit. Level 5.0, decreased to 3.9 but this am level 4. Will order digibind and cardio consult) <Gisele Bruno - Last Filed: 11/05/23 14:24> Date of Service: 11/05/23 <Jp Busby - Last Filed: 11/05/23 22:02> Review of Systems 10-point ROS is otherwise unremarkable Gastrointestinal: Nausea, Vomiting, As per HPI <Gisele Bruno - Last Filed: 11/05/23 14:24> Physical Examination - Vital Signs Temperature: 98.2 F Blood Pressure: 154/67 Pulse: 61 Respirations: 18 Pulse Ox (%): 97 - Physical Exam General: Alert, In no apparent distress, Oriented x3 HEENT: Atraumatic, Normocephalic Neck: Supple Respiratory: Normal air movement Cardiovascular: Regular rate/rhythm, Systolic murmur Capillary refill: <2 Seconds Gastrointestinal: Soft and benign Musculoskeletal: No clubbing Integumentary: No rashes Neurological: Normal speech, Abnormal strength Lymphatics: No axilla or inguinal lymphadenopathy External genitalia: Deferred Rectal: Deferred <Gisele Bruno - Last Filed: 11/05/23 14:24> Assessment And Plan - Plan ESRD with dehydration Euvolemic 11/03 continue lasix as directed Trend labs Replete electrolytes Dr. Jackson following Intractable N/V with weight loss Phenergan [place] N.p.o. except ice chips Pt found to be Digoxin toxic at 5.0 on admission, dig stopped, s/p dialysis 11/02, level 3.9. Dig not clearing with dialysis. 11/03 nausea, 11/04 this am digoxin level 4, went to dialysis today. Will give digibind today HTN/Coronary artery disease with chronic digoxin toxicity Home medications as directed telemetry Hold isosorbide, amiodarone, metoprolol discontinue digoxin Florinef 0.1 mg daily Consult Cardiology HLD Home medication Hypothyroidism Levothyroxine 50 mcg Evaluated TSH - 1.47 Diverticulitis Cipro and Flagyl with renal dosing Serial abdominal exam N.p.o. except ice chips DVT/GI prophylaxis Patient takes aspirin/Plavix Protonix <Gisele Bruno - Last Filed: 11/05/23 14:24> - Plan Pt seen and examined. I agree with the note by the RETENTION REPRESENTATIVE. Her symptoms are due to Digoxin toxicity. Digoixn level is 4. We ordered digibind. <Jp Busby - Last Filed: 11/05/23 22:02>
[2023-11-05] MEDS: METOCLOPRAMIDE 10 MG/2mL INJ IV PRN (14:54)
[2023-11-05] MEDS ORDERED: EPOETIN 4,000 UNIT/ML VIAL IV SCH (15:45)
--- NOTE | 2023-11-05 18:35 | P.CNS ---
Date of Consult: 11/05/23 Chief Complaint: N/V, ESRD, colitis History of Present Illness: Patient with PMH of ESRD, CHF, presented with N&V and diarrhea, she also got a history of CAD with recent stent placement 3 months ago, patient is on dialysis, she denies chest pain, no SOB, no palpitations, no syncope. Allergies morphine Allergy (Verified 11/01/23 22:47) Shortness of breath Home Medications: Amiodarone HCl [Cordarone Tab] 100 mg PO DAILY 11/02/23 Clopidogrel Bisulfate [Plavix] 75 mg PO DAILY 11/02/23 Digoxin [Lanoxin] 0.125 mg PO DAILY 11/02/23 Furosemide [Lasix] 40 mg PO BID 11/02/23 Aspirin 81 mg PO DAILY 11/03/23 Isosorbide Mononitrate [Isosorbide Mononitrate ER] 60 mg PO DAILY 11/03/23 Levothyroxine Sodium [Unithroid] 1 tab PO DAILY 11/03/23 Sitagliptin Phosphate [Januvia] 1 tab PO DAILY 11/03/23 - Past Medical/Surgical History Diabetic: Yes -: ESRD -: DM -: HTN -: Coronary artery disease -: dialysis catheter (right chest wall) -: Cardiac stents Psychosocial/ Personal History: Lives at home with her disabled - Family History Mother Medical History: Heart disease, Other (see notes) Notes: osteoporosis Father Medical History: Hypertension, Cancer, Other (see notes) Notes: lung cancer - Social History Alcohol use: No CD- Drugs: No Caffeine use: Yes Place of Residence: Home Review of Systems 10-point ROS is otherwise unremarkable Physical Examination Temp Pulse Resp BP Pulse Ox 98.2 F 61 18 154/67 H 97 11/05/23 14:28 11/05/23 14:28 11/05/23 14:28 11/05/23 14:28 11/05/23 14:28 General: Alert, Oriented x3 HEENT: Atraumatic Neck: Supple Respiratory: Clear to auscultation bilaterally Cardiovascular: No edema, Normal S1 S2 Gastrointestinal: Normal bowel sounds - Problems (1) Digoxin toxicity Current Visit: Yes Status: Acute Plan: Patient is more stable, nausea and vomiting is improving, HR is normal, Continue to hold digoxin and there is no need to start on discharge. Continue dialysis and monitoring digoxin level. (2) CAD (coronary artery disease) Current Visit: Yes Status: Acute Plan: Continue ASA 81 mg daily Continue Plavix 75 mg daily Continue Lipitor. (3) Chronic diastolic heart failure Current Visit: Yes Status: Acute Plan: Patient is euvolmic on exam. Continue Imdur 30 mg daily Continue volume control through Lasix and dialysis per nephrology team.
[2023-11-05] MEDS: DIGOXIN IMMUNE FAB IV ONE (19:31)
[2023-11-05] MEDS: SODIUM CHLORIDE 0.9% IV ONE (19:31)
--- NOTE | 2023-11-06 02:14 | PN ---
Date of Progress Note: 11/05/2023 History: No overnight events. Tolerated dialysis today. Digoxin level down to 4. Physical Examination: Vital Signs: Temperature 98.2, pulse rate 61, blood pressure 154/67. General: Awake and alert, not in distress. Neck: Supple. No elevated JVD. Heart: Regular rate and rhythm. Normal S1, S2. Chest: Clear to auscultation bilaterally. No rales or wheezes. Abdomen: Soft, nontender. Extremities: No edema. Laboratory Data: Sodium 135, potassium 3.2, BUN 18, creatinine 5.2, white count 8.4, hemoglobin 8.5, platelets 164. Assessment And Plan: The patient has medical history of end-stage renal disease, was admitted for di goxin toxicity. Digoxin level . She had dialysis today. 1.End-stage renal disease. Continue dialysis Wednesday, Wednesday, Wednesday. Renal diet. Renal dose me dication. Avoid NSAIDs and contrast. 2.Anemia of chronic disease. We will start the patient on Epogen. Monitor H and H, transfuse if he moglobin is less than 7. 3.Digoxin toxicity, digoxin level improved status post Digibind. 4.Hypothyroidism. Continue Synthroid. 5.Diverticulitis. Continue antibiotic. Diet as tolerated. Thank you for allowing me to participate in the patient care. Total time spent 55 minutes including documentation reviewing labs, and discussing with the patient and the medical team. ARELY Voice ID: [id number] Report ID: [id number]
[2023-11-06 06:17] LABS: Absolute Basophils 0.1 K/uL (0-0.5); Absolute Eosinophils 0.1 K/uL (0-0.5); Absolute Lymphocytes (CBC) 1.9 K/uL (0.7-4.9); Absolute Monocytes 0.9 K/uL (0.1-1.3); Absolute Neutrophil 6.3 K/uL (1.8-8.0); Basophils % 1.3 % (0-1.3); Eosinophils % 1.5 % (0-4.4); Hematocrit 27.7 % (36.0-45.0); Hemoglobin 9.2 g/dL (12.0-15.0); Lymphocytes % 20.5 % (15.3-44.8); MCH 30.1 pg (27.0-35.0); MCHC 33.2 g/dL (32.0-36.0); MCV 90.7 fL (80-100); MPV 11.8 fL (7.6-11.3); Monocytes % 9.6 % (3.3-12.3); Neutrophils % 67.1 % (41.7-73.7); Platelets 143 thou/uL (152-406); RBC Red Blood Cell Count 3.06 M/uL (3.86-4.86); Red Cell Distribution Width 18.1 % (12.1-15.2)
[2023-11-06 06:48] LABS: Albumin/Globulin Ratio 0.9 (1.1-1.8); Anion Gap 9.5 mEq/L (5.0-15.0); Bilirubin Total 0.4 mg/dL (0.2-1.0); Globulin 3.3 g/dL (2.3-3.5); Potassium 3.5 mEq/L (3.5-5.1); Protein, Total 6.3 g/dL (6.4-8.2)
[2023-11-06 06:55] LABS: Digoxin Level 2.8 ng/mL (0.80-2.00)
[2023-11-06] MEDS: POTASSIUM CL SA 10 MEQ TAB PO ONE (08:49)
[2023-11-06 09:35] VITALS: O2SAT 100
--- NOTE | 2023-11-06 09:56 | P.PN ---
Subjective Date of Service: 11/06/23 Chief Complaint: N/V, ESRD, colitis Subjective: Improving (digibind x 1 dose last pm. This am digoxin level 2.8. Will not restart digoxin.) <Keturah Brunoy Remigio - Last Filed: 11/06/23 09:51> Date of Service: 11/06/23 <Jp Busby C - Last Filed: 11/06/23 13:17> Review of Systems 10-point ROS is otherwise unremarkable General: Weakness, As per HPI Gastrointestinal: As per HPI Neurological: As per HPI <Keturah Brunoy Remigio - Last Filed: 11/06/23 09:51> Physical Examination - Vital Signs Temperature: 97.6 F Blood Pressure: 133/63 Pulse: 62 Respirations: 18 Pulse Ox (%): 99 - Physical Exam General: In no apparent distress, Oriented x3 HEENT: Atraumatic, Normocephalic Neck: Supple Respiratory: Normal air movement Cardiovascular: No edema, Normal pulses Capillary refill: <2 Seconds Gastrointestinal: Soft and benign Musculoskeletal: No clubbing Integumentary: No rashes Neurological: Normal speech, Normal tone Lymphatics: No axilla or inguinal lymphadenopathy External genitalia: Deferred Rectal: Deferred <Keturah Brunoy Remigio - Last Filed: 11/06/23 09:51> Assessment And Plan - Plan ESRD with dehydration Euvolemic 11/03 continue lasix as directed Trend labs Replete electrolytes Dr. Jackson following 11/05 dialysis yesterday, labs improved Intractable N/V with weight loss Phenergan [place], added Reglan 11/04 N.p.o. except ice chips, increased to regular slowly Pt found to be Digoxin toxic at 5.0 on admission, dig stopped, s/p dialysis 11/02, level 3.9. Dig not clearing with dialysis. 11/03 nausea, 11/04 this am digoxin level 4, went to dialysis today. Will give digibind today 11/05 digibind 80mg given last pm, this am digoxin level 2.8, will not restart digoxin per Cardiology HTN/Coronary artery disease with chronic digoxin toxicity Home medications as directed telemetry Hold isosorbide, amiodarone, metoprolol discontinue digoxin Florinef 0.1 mg daily 11/04 Cardiology - Dr. Macdonald evaluated patient 11/05 do not restart dig HLD Home medication Hypothyroidism Levothyroxine 50 mcg Evaluated TSH - 1.47 Diverticulitis Cipro and Flagyl with renal dosing Serial abdominal exam 11/05 Much better, advance diet, can stop abx on day 7, change to po Cipro today DVT/GI prophylaxis Patient takes aspirin/Plavix Protonix <Gisele Bruno - Last Filed: 11/06/23 09:51> - Plan Pt seen and examined. I agree with the note by the APPIAN BPM DEVELOPER. Pt is feeling better. Digoxin level is 2.8 s/p digibind. Will dc pt soon. <Jp Busby - Last Filed: 11/06/23 13:17>
--- NOTE | 2023-11-06 13:21 | PN ---
Date of Progress Note: 11/06/2023 Subjective: The patient was admitted with digoxin toxicity. The patient received Digibind, recovere d. The patient symptoms have been resolved. Received dialysis yesterday, tolerated without any comp lication. We managed to remove 3 L. Physical Examination: Vital Signs: Blood pressure 133/63, pulse of 62, afebrile. Chest: Clear to auscultation. Heart: S1, S2. Regular. Abdomen: Soft, nontender. Extremities: No edema. Neuro: Alert. No focality. Laboratory Data: Hemoglobin 9.2. Sodium 137, potassium 3.5, bicarb 27, BUN 10, creatinine 3.8, calc ium 9.1. Current Medications: The patient is on include promethazine, ciprofloxacin, Plavix, Epogen, Zoloft, Lasix 40 daily, pantoprazole, Florinef, levothyroxine. Assessment And Plan: 1.End-stage renal disease, normal volume. I am going to continue dialysis Wednesday, Wednesday, Wednesday . The patient is cleared from the Renal standpoint for discharge planning. 2.Hypokalemia, hyponatremia, going to be corrected with dialysis. The patient was dialyzed on high potassium bath. No need for supplement. 3.Anemia of chronic kidney disease. Continue JAIME. 4.Digoxin toxicity, status post Digibind. Digoxin level down to 2.8. The patient is asymptomatic. The patient is okay from the Renal standpoint for discharge planning. No need for further dialysis as digoxin is not dialyzable. HANNAH Voice ID: [id number] Report ID: [id number]
[2023-11-06 15:29] VITALS: BP 132/64; TEMP 97.4
--- NOTE | 2023-11-06 17:32 | P.DS ---
Admission Date: 11/01/23 Discharge Date: 11/06/23 Disposition: ROUTINE DISCHARGE Discharge Condition: GOOD Reason for Admission: N/V, ESRD, colitis Brief History of Present Illness: Ms. Benson is a 72-year-old with a past medical history of coronary artery disease, hypertension with CKD, end-stage renal disease, hyperlipidemia, hypothyroidism who sees Dr. Kuo and Dr. Pavon in [place]. 3 months ago she had a cardiac catheterization with PCI. 1 month ago she started experiencing severe nausea and vomiting. She states she vomited between 3 and 5 times daily. She has been going to dialysis Wednesday, Wednesday, Wednesday as scheduled; however, she has not been able to tolerate her normal 3-hour treatments. Today she went to dialysis for 2 hours but became hypotensive, nauseous, and was brought to the emergency department. She states over the last month she has lost 20 pounds. She denies chest pain, shortness of breath, diarrhea. She denies significant abdominal pain but says she is uncomfortable. CT evaluation with "sigmoid thickening is present with diverticula which could indicate mild diverticulitis. Suggest follow-up colonoscopy for further direct assessment. Suspected cholelithiasis. A limited noncontrast examination was performed as detailed." Ms. Benson is hemodynamically stable and we will admit her for further evaluation and treatment. Hospital Course: Pt is a 72 yo female with past medical history of coronary artery disease (s/p PCI 3 months ago), hypertension with CKD, end-stage renal disease, hyperlipidemia, and hypothyroidism who presented with severe nausea and vomiting that started about 1 month before this admission. She vomited about 3 - 5 times per day. The nausea and vomiting progressively worsened and she was not able to complete her dialysis session on the day of admission due to hypotension during dialysis. She was sent to the ER for admission. She also noticed 20 pounds weight loss over the apst 1 month. On admission, CT abd showed sigmoid thickening with diverticula which could indicate mild diverticulitis and suspected cholelithiasis. We admitted pt for colitis and gave cipro an flagyl for colitis. We attributed her symptoms to digoxin toxicity. Digoxin level was > 5. It did not improve much with dialysis. We gave digibind and Digoxin level improved from 4 to 2.8. Pt expressed resolution of the symptoms and requested to be discharged. We advised pt to stoop taking Digoxin. We decreased imdur to 30mg po daily and continue lasix 40mg po daily. We also added florinef 0.1mg po daily for hypotesnion. Pt was advised to hold florinef if SBP > 130. We continued home med for other chronic medical problems. Pt was in NAD prior to discharge. Vital Signs/Physical Exam: Temp Pulse Resp BP Pulse Ox 97.4 F 72 16 132/64 100 11/06/23 12:00 11/06/23 12:00 11/06/23 12:00 11/06/23 12:00 11/06/23 12:00 Laboratory Data at Discharge: WBC 9.40 thou/uL (4.3-10.9) 11/06/23 05:45 Hgb 9.2 g/dL (12.0-15.0) L D 11/06/23 05:45 Hct 27.7 % (36.0-45.0) L 11/06/23 05:45 Plt Count 143 thou/uL (152-406) L 11/06/23 05:45 Sodium 137 mEq/L (136-145) 11/06/23 05:45 Potassium 3.5 mEq/L (3.5-5.1) 11/06/23 05:45 BUN 10 mg/dL (7-18) 11/06/23 05:45 Creatinine 3.88 mg/dL (0.55-1.02) H 11/06/23 05:45 Glucose 117 mg/dL (74-106) H 11/06/23 05:45 Phosphorus 4.3 mg/dL (2.5-4.9) 11/02/23 06:13 Magnesium 2.0 mg/dL (1.6-2.4) 11/02/23 06:13 Total Bilirubin 0.4 mg/dL (0.2-1.0) 11/06/23 05:45 AST 39 U/L (15-37) H 11/06/23 05:45 ALT 24 U/L (13-56) 11/06/23 05:45 Alkaline Phosphatase 91 U/L (45-117) 11/06/23 05:45 Triglycerides 250 mg/dL (<150) H 11/02/23 06:13 Cholesterol 226 mg/dL (<200) H 11/02/23 06:13 HDL Cholesterol 44 mg/dL (40-60) 11/02/23 06:13 Cholesterol/HDL Ratio 5.14 11/02/23 06:13 Lipase 42 U/L (13-75) 11/01/23 14:25 Home Medications: Amiodarone HCl [Cordarone*] 100 mg PO DAILY 11/02/23 Clopidogrel Bisulfate [Plavix] 75 mg PO DAILY 11/02/23 Aspirin 81 mg PO DAILY 11/03/23 Levothyroxine Sodium [Unithroid] 1 tab PO DAILY 11/03/23 Sitagliptin Phosphate [Januvia] 1 tab PO DAILY 11/03/23 Atorvastatin Calcium [Lipitor] 40 mg PO BEDTIME 90 Days #90 tab 11/06/23 Fludrocortisone [Florinef *] 0.1 mg PO DAILY 30 Days #30 tab 11/06/23 Furosemide [Lasix*] 40 mg PO DAILY 30 Days #30 tab 11/06/23 New Medications: Fludrocortisone [Florinef *] 0.1 mg PO DAILY 30 Days #30 tab Furosemide [Lasix*] 40 mg PO DAILY 30 Days #30 tab Atorvastatin Calcium [Lipitor] 40 mg PO BEDTIME 90 Days #90 tab Physician Discharge Instructions: Continue ad nallely activity. Do not take Digoxin again. Continue other home meds as prescribed. Follow up with PCP within 1 - 2 weeks. Do not take Florinef if Sy stolic Blood pressure is more than 130 Diet: AHA Activity: Ad nallely Followup: Vazquez Paniagua MD [Primary Care Provider] -
[2023-11-06] MEDS ORDERED: CIPROFLOXACIN HCL 250 MG TAB PO SCH (21:00)
== END 2023-11-06 18:35 | disposition home or self-care (01) | DRG 393 ==
LOC: ER 12:33 → ERHOLD 16:51 → 4TH 17:42
PROVIDERS: ADMIT Hospitalist; ATTEND Hospitalist
PROC: 5A1D70Z Performance of Urinary Filtration, Intermittent, Less than 6 Hours Per Day (ICD-10-PCS; principal; 2023-11-01)
DX: K52.1 Toxic gastroenteritis and colitis (principal); N18.6 End stage renal disease; E87.1 Hypo-osmolality and hyponatremia; K57.32 Diverticulitis of large intestine without perforation or abscess without bleeding; R64 Cachexia; I13.2 Hypertensive heart and chronic kidney disease with heart failure and with stage 5 chronic kidney disease, or end stage renal disease; I50.32 Chronic diastolic (congestive) heart failure; E11.22 Type 2 diabetes mellitus with diabetic chronic kidney disease; E11.40 Type 2 diabetes mellitus with diabetic neuropathy, unspecified; D63.1 Anemia in chronic kidney disease; E03.9 Hypothyroidism, unspecified; E86.0 Dehydration; E87.6 Hypokalemia; I48.91 Unspecified atrial fibrillation; E78.5 Hyperlipidemia, unspecified; K80.20 Calculus of gallbladder without cholecystitis without obstruction; I25.10 Atherosclerotic heart disease of native coronary artery without angina pectoris; T46.0X5A Adverse effect of cardiac-stimulant glycosides and drugs of similar action, initial encounter; Z99.2 Dependence on renal dialysis; Z88.5 Allergy status to narcotic agent; Z79.82 Long term (current) use of aspirin; Z95.5 Presence of coronary angioplasty implant and graft; Z68.22 Body mass index [BMI] 22.0-22.9, adult; Z79.02 Long term (current) use of antithrombotics/antiplatelets; Z79.890 Hormone replacement therapy; Z79.899 Other long term (current) drug therapy
CPT/HCPCS: 36415; 74176; 80053; 80061; 80162; 81001; 82947; 83690; 83735; 84100; 84443; 84484; 85025; 86706; 87340; 90935; 93005; 97116; 97161; 99285; C9113; J0744; J1162; J1644; J1815; J2405; J2550; J2765; J7030; J7040